=== PATIENT | female | born 1970 | race Hispanic/Latino ===

== ENCOUNTER 2019-06-09 12:36 | Inpatient (IN) | payer BC, OTHER ==
[~2019-06-09] VITALS: Ht 157.5 cm; Wt 97.0 kg
[2019-06-09] MEDS: SODIUM CHLORIDE 0.9% 1000ML 1,000 ML IV SCH ×2 (12:00→16:00)
[~2019-06-09 12:36] MED LIST: BUSP15TA3 PO; CITA-107 PO; METF-444 PO; METO25 PO; NAPR250T4 PO; NIAC500C3 PO; ROSU40 PO
[2019-06-09] MEDS ORDERED: ASPIRIN 325 MG TABLET ONE (12:49)
[2019-06-09 13:10] LABS: BASOPHILS % (AUTO) 0.6 % (0.0-5.0); EOSINOPHILS % (AUTO) 1.4 % (0.0-8.0); HEMATOCRIT 42.9 % (36-48); MEAN CORPUSCULAR HEMOGLOBIN 29.7 pg (27.0-33.0); MEAN CORPUSCULAR HGB CONC 34.2 g/dL (32.0-36.0); MEAN CORPUSCULAR VOLUME 86.7 fL (79-99); MONOCYTES % (AUTO) 6.5 % (3.0-13.0); NEUTROPHILS % (AUTO) 50.5 % (40.0-77.0); PLATELET COUNT (AUTO) 389 K/uL (130-400); RED BLOOD CELL COUNT(AUTO) 4.95 MIL/uL (4.00-5.50); WHITE BLOOD COUNT (AUTO) 9.3 K/uL (4.8-10.8)
[2019-06-09 13:22] LABS: INR 1.02 (0.85-1.15); PARTIAL THROMBOPLASTIN TIME 26.1 SEC (26.3-35.5); PROTHROMBIN TIME 10.7 SEC (9.6-11.6)
[2019-06-09 13:26] LABS: ALBUMIN 3.7 g/dL (3.5-5.0); BILIRUBIN,TOTAL 0.6 mg/dL (0.2-1.0); CREATININE 0.8 mg/dL (0.5-1.5); POTASSIUM 4.1 mmol/L (3.5-5.1); TOTAL PROTEIN, SERUM 7.8 g/dL (6.0-8.3)
[2019-06-09 13:36] LABS: B-TYPE NATRIURETIC PEPTIDE < 5 pg/mL (0-100)
[2019-06-09 13:36] LABS: AMPHET/METH SCREEN,URINE NEGATIVE (NEGATIVE); BARBITURATE SCREEN, URINE NEGATIVE (NEGATIVE); BENZODIAZEPINES SCREEN,URINE POSITIVE (NEGATIVE); CANNABINOID SCREEN,URINE NEGATIVE (NEGATIVE); COCAINE SCREEN,URINE NEGATIVE (NEGATIVE); HCG,QUAL RESULT NEGATIVE (NEGATIVE); OPIATE SCREEN,URINE NEGATIVE (NEGATIVE); PHENCYCLIDINE SCREEN,URINE NEGATIVE (NEGATIVE)
[2019-06-09] MEDS ORDERED: INSULIN HUMULIN R 100 UNIT/ML 3ML ONE ×2 (13:56→15:17)
[2019-06-09] MEDS ORDERED: SODIUM CHLORIDE 0.9% 1000ML 1,000 ML IV ONE ×3 (13:57→17:45)
[2019-06-09] MEDS ORDERED: HYDRALAZINE HCL 20 MG/ML VIAL IV PRN (16:00)
[2019-06-09] MEDS: INSULIN LISPRO 100 UNIT/ML 3ML SQ SCH ×2 (16:00→20:00)
[2019-06-09] MEDS ORDERED: INSULIN GLARGINE 100 UNITS/ML 10 ML VIAL SQ SCH (16:00)
[2019-06-09] MEDS ORDERED: ACETAMINOPHEN 325 MG TAB PO PRN ×2 (16:00)
[2019-06-09] MEDS ORDERED: ONDANSETRON HCL 4 MG/2 ML VIAL IV PRN (16:00)
[2019-06-09 16:38] LABS: APPEARANCE,URINE Clear (CLEAR); BILIRUBIN,URINE Negative (NEGATIVE); COLOR,URINE Yellow (YELLOW); GLUCOSE, URINE (UA) >=1000 mg/dL (NEGATIVE); KETONES,URINE >=80 mg/dL (NEGATIVE); LEUKOCYTE ESTERASE ,URINE Negative (NEGATIVE); NITRATE,URINE Negative (NEGATIVE); OCCULT BLOOD,URINE Negative (NEGATIVE); PH,URINE 5.5 (5.0-8.0); PROTEIN,URINE Negative (NEGATIVE); UROBILINOGEN,URINE 0.2 mg/dL (0.2-1.0)
[2019-06-09 16:46] LABS: HEMOGLOBIN A1C 10.4 % (4.0-6.0)
[2019-06-09 16:49] LABS: MAGNESIUM 1.8 mg/dL (1.80-2.40); PHOSPHORUS 3.8 mg/dL (2.5-4.9)
[2019-06-09 16:59] LABS: BACTERIA,URINE Few /HPF (None Seen); RBC,URINE 0-1 /HPF (0-1)
[2019-06-09 17:00] LABS: MUCUS,URINE Few LPF (None Seen)
[2019-06-09 22:30] VITALS: BP 139/84
[2019-06-09] MEDS ORDERED: ZOLP10TA2 PO (23:40)
[2019-06-09] MEDS ORDERED: BREX2TAB PO (23:40)
[2019-06-09] MEDS ORDERED: METO50TA18 PO (23:40)
[2019-06-09] MEDS ORDERED: VENL-63 PO (23:40)
[2019-06-09] MEDS ORDERED: LOSA100T58 PO (23:40)
[2019-06-09] MEDS ORDERED: ROSU10TA28 PO (23:40)
[2019-06-09] MEDS ORDERED: NIAC500T22 PO (23:40)
[2019-06-10] MEDS ORDERED: FLU VACC QS2019-20 36MOS UP/PF 60 MCG/0.5 ML ML IM ONE (00:15)
[2019-06-10] MEDS: FAMOTIDINE/PF 20 MG/2 ML VIAL IV SCH ×3 (00:54→20:55)
[2019-06-10] MEDS: INSULIN LISPRO 100 UNIT/ML 3ML SQ SCH ×7 (01:00→20:17)
[2019-06-10] MEDS: SODIUM CHLORIDE 0.9% 1000ML 1,000 ML IV SCH ×3 (02:00→12:47)
[2019-06-10 03:00] VITALS: BP 130/79
--- NOTE | 2019-06-10 07:54 | NUR ---
FLU VACCINE ADMINISTERED TO LEFT DELTOID. NO ACUTE DISTRESS NOTED. REFER TO EMAR.
[2019-06-10 08:00] VITALS: BP 133/77
[2019-06-10] MEDS: ENOXAPARIN SODIUM 40 MG/0.4 ML SYRINGE SQ SCH (10:01)
[2019-06-10 12:00] VITALS: BP 142/81
[2019-06-10 16:00] VITALS: BP 119/74
[2019-06-10] MEDS ORDERED: METFORMIN HCL 500 MG TABLET PO SCH (16:30)
[2019-06-10] MEDS: METFORMIN HCL 500 MG TAB.SR.24H PO SCH (16:43)
[2019-06-10] MEDS: GLIPIZIDE 5 MG TABLET PO SCH (16:43)
--- NOTE | 2019-06-10 17:46 | NUR ---
D/C PLAN CM spoke to pt regarding d/c planning. Pt is ind[place] and lives with spouse. States spouse can assist in care if needed. Plan to home. No needs verbalized or identified. CM to f/u. Addendum: 06/10/19 at 1747 by AMANDA KUMAR CM Amended: Links added.
[2019-06-10 19:00] VITALS: BP 131/76
[2019-06-10] MEDS: METOPROLOL TARTRATE 50 MG TAB PO SCH (20:55)
[2019-06-10] MEDS ORDERED: NIACIN 500 MG SRTAB PO SCH (21:00)
[2019-06-10] MEDS ORDERED: ZOLPIDEM TARTRATE 5 MG TAB PO SCH (21:00)
[2019-06-10] MEDS ORDERED: INSULIN GLARGINE 100 UNITS/ML 10 ML VIAL SQ SCH (21:00)
[2019-06-10 23:00] VITALS: BP 119/68
[2019-06-11 03:00] VITALS: BP 130/79
[2019-06-11] MEDS: INSULIN LISPRO 100 UNIT/ML 3ML SQ SCH ×5 (04:50→16:00)
[2019-06-11 06:02] LABS: BASOPHILS % (AUTO) 0.5 % (0.0-5.0); EOSINOPHILS % (AUTO) 1.5 % (0.0-8.0); HEMATOCRIT 40.7 % (36-48); LYMPHOCYTES % (AUTO) 40.2 % (21.0-51.0); MEAN CORPUSCULAR HEMOGLOBIN 29.7 pg (27.0-33.0); MEAN CORPUSCULAR HGB CONC 34.2 g/dL (32.0-36.0); MEAN CORPUSCULAR VOLUME 86.8 fL (79-99); MONOCYTES % (AUTO) 6.6 % (3.0-13.0); NEUTROPHILS % (AUTO) 51.2 % (40.0-77.0); PLATELET COUNT (AUTO) 371 K/uL (130-400); RED BLOOD CELL COUNT(AUTO) 4.69 MIL/uL (4.00-5.50); RED CELL DISTRIBUTION WIDTH 13.1 % (11.0-15.5)
[2019-06-11 06:15] LABS: CREATININE 0.7 mg/dL (0.5-1.5); POTASSIUM 3.8 mmol/L (3.5-5.1)
[2019-06-11] MEDS: GLIPIZIDE 5 MG TABLET PO SCH ×2 (07:47→16:51)
[2019-06-11 08:00] VITALS: BP_SYST 117; BP_SYST 122; BP_SYST 181; BP_DIAS 70; BP_DIAS 85; BP_DIAS 97
[2019-06-11] MEDS: SODIUM CHLORIDE 0.9% 1000ML 1,000 ML IV SCH ×3 (08:47→15:27)
[2019-06-11] MEDS ORDERED: REXULTI 2 MG PO SCH (09:00)
[2019-06-11] MEDS ORDERED: ATORVASTATIN CALCIUM 20 MG TABLET PO SCH (09:00)
[2019-06-11] MEDS ORDERED: LOSARTAN 100 MG TABLET PO SCH (09:00)
[2019-06-11] MEDS ORDERED: VENLAFAXINE HCL XR 37.5 MG CAP PO SCH (09:00)
[2019-06-11] MEDS: METOPROLOL TARTRATE 50 MG TAB PO SCH (09:18)
[2019-06-11] MEDS: FAMOTIDINE/PF 20 MG/2 ML VIAL IV SCH (09:18)
[2019-06-11] MEDS: ENOXAPARIN SODIUM 40 MG/0.4 ML SYRINGE SQ SCH (09:21)
[2019-06-11] MEDS: METFORMIN HCL 500 MG TAB.SR.24H PO SCH ×2 (09:38→16:52)
[2019-06-11 11:19] VITALS: BP 117/75
[2019-06-11 11:22] VITALS: BP 117/75
[2019-06-11 16:00] VITALS: BP 128/70
[2019-06-11] MEDS ORDERED: METF-446 PO (17:45)
[2019-06-11] MEDS ORDERED: GLIP5TAB11 PO (17:45)
--- NOTE | 2019-06-11 19:20 | NUR ---
DISCHARGE HOME, WITH . REVIEW PLAN OF CARE. . DENIES ANY DISCOMFORT. SL TO HER LFA DC, WITH NO REDNESS NOTED SM SITE DRSG APPLICATION ON.
== END 2019-06-11 19:20 | disposition home or self-care (01) | DRG 639 ==
LOC: EDH 12:36 → OBSVTOIN 16:00 → EDHIP 16:00 → 3BH 20:42
PROVIDERS: ADMIT Internal Medicine; ATTEND Internal Medicine
DX: E11.00 Type 2 diabetes mellitus with hyperosmolarity without nonketotic hyperglycemic-hyperosmolar coma (NKHHC) (principal); F41.9 Anxiety disorder, unspecified; F32.9 Major depressive disorder, single episode, unspecified; E78.2 Mixed hyperlipidemia; I10 Essential (primary) hypertension; E11.65 Type 2 diabetes mellitus with hyperglycemia; E66.9 Obesity, unspecified; Z68.39 Body mass index [BMI] 39.0-39.9, adult; E86.0 Dehydration; Z79.84 Long term (current) use of oral hypoglycemic drugs; Z90.49 Acquired absence of other specified parts of digestive tract; Z90.711 Acquired absence of uterus with remaining cervical stump; Z82.3 Family history of stroke; Z82.5 Family history of asthma and other chronic lower respiratory diseases; Z83.3 Family history of diabetes mellitus; Z82.0 Family history of epilepsy and other diseases of the nervous system; Z82.49 Family history of ischemic heart disease and other diseases of the circulatory system; Z23 Encounter for immunization
CPT/HCPCS: 36415; 71045; 80048; 80053; 80305; 81001; 81025; 82550; 82948; 83036; 83735; 83880; 84100; 84145; 84484; 85025; 85610; 85730; 93005; G0378; J1650; J1815; J2405; J3490; J7030; Q2035

== ENCOUNTER 2023-11-30 08:35 | Day surgery (SDC) | payer BC, OTHER ==
[~2023-11-30] VITALS: Ht 154.9 cm; Wt 111.1 kg
[2023-11-30] VITALS (10 sets, daily range): BP systolic 108–153; BP diastolic 60–95; PULSE 78–88; RESP 14–21
[~2023-11-30 08:35] MED LIST changes: +ALPR-411 PO; +BREX3TAB PO; -BUSP15TA3 PO; +BUSP7.5T7 PO; -CITA-107 PO; +FURO20TA4 PO; +LINA145C PO; +LOSA100T59 PO; -METF-444 PO; +METO-409 PO; -METO25 PO; -NAPR250T4 PO; +NIAC1CAP PO; -NIAC500C3 PO; +OMEP40CA21 PO; +ONDA-105 PO; +PIOG15TA66 PO; -ROSU40 PO; +ROSU40TA21 PO; +SYNJARDY PO; +TRINTELLIX PO; +ZALE10CA26 PO
[2023-11-30] MEDS ORDERED: 0.9%NACL 1000ML 1,000 ML IV ONE (09:51)
[2023-11-30] MEDS ORDERED: PROPOFOL 10 MG/ML 20ML VIAL IV ONE (11:32)
== END 2023-11-30 12:45 | disposition home or self-care (01) ==
LOC: ENDO 08:35 → DAH 08:35 → ENDO 12:45
PROVIDERS: ATTEND Internal Medicine Gastroenterology
DX: R13.10 Dysphagia, unspecified (principal); K22.2 Esophageal obstruction; K44.9 Diaphragmatic hernia without obstruction or gangrene; K29.70 Gastritis, unspecified, without bleeding; K21.9 Gastro-esophageal reflux disease without esophagitis; R14.0 Abdominal distension (gaseous); K57.30 Diverticulosis of large intestine without perforation or abscess without bleeding; K59.04 Chronic idiopathic constipation; I10 Essential (primary) hypertension; E66.01 Morbid (severe) obesity due to excess calories; F41.9 Anxiety disorder, unspecified; E78.5 Hyperlipidemia, unspecified; E11.9 Type 2 diabetes mellitus without complications; M19.90 Unspecified osteoarthritis, unspecified site; Z90.710 Acquired absence of both cervix and uterus; Z90.49 Acquired absence of other specified parts of digestive tract; Z80.0 Family history of malignant neoplasm of digestive organs; Z86.010 Personal history of colon polyps; Z79.899 Other long term (current) drug therapy; Z68.42 Body mass index [BMI] 45.0-49.9, adult
CPT/HCPCS: 43248; 43239; 82948; J7030 ×2; J2704; A4620; A4215 ×2; A4223; A4222; A4221; A4663; A4606; J3490